=== PATIENT | female | born 1975 | race Caucasian/White ===

== ENCOUNTER → 2019-05-28 | Outpatient (CLI) | payer BC ==
[~2019-05-28] MED LIST: DOCU100 PO; IBUP800 PO; OXYACE5T PO; PROM25 PO; SIME80CH PO; THYR60 PO
[2019-05-28 12:18] LABS: Source, Urine Clean Catch
[2019-05-28 13:22] LABS: Bilirubin, Urine Neg (Neg); Blood, Urine Neg (Neg); Glucose Qualitative, Urine Neg (Neg); Ketones, Urine Neg (Neg); Leukocyte Esterase, Urine 2+ (Neg); Nitrite, Urine Neg (Neg); Protein, Urine Neg (Neg); Urobilinogen, Urine NORM (Normal); pH, Urine 6.5 (5.0-8.0)
[2019-05-28 14:12] LABS: Appearance, Urine Clear (Clear); Color, Urine Pale Yellow (P-Yellow)
[2019-05-28 14:34] LABS: Bacteria Not Seen /hpf; Red Blood Cells, Urine 0-2 /hpf (0-2); Squamous Epithelial Cells Not Seen /hpf (Few)
== END | disposition home or self-care (01) ==
LOC: LAB SHORT 12:17 → LAB SRC 12:17
PROVIDERS: Nurse Practitioner Women's Health
DX: R30.0 Dysuria (principal); R35.0 Frequency of micturition
CPT/HCPCS: 81001; 87077; 87086; 87186

== ENCOUNTER 2025-08-06 21:09 | Emergency (ER) | payer OTHER, BC ==
[~2025-08-06] VITALS: Ht 167.6 cm; Wt 77.1 kg
[2025-08-06 21:29] VITALS: BP 158/98
[2025-08-06] MEDS ORDERED: Ketorolac Tromethamine 15mg Vial IM ONE (21:55)
[2025-08-06] MEDS ORDERED: Robaxin750 MG PO (22:00)
== END 2025-08-06 22:18 | disposition home or self-care (01) ==
LOC: ER 21:09
DX: M54.2 Cervicalgia (principal); M54.6 Pain in thoracic spine; V49.50XA Passenger injured in collision with unspecified motor vehicles in traffic accident, initial encounter; E03.9 Hypothyroidism, unspecified; Z79.899 Other long term (current) drug therapy; Z59.6 Low income; Z59.89 Other problems related to housing and economic circumstances
CPT/HCPCS: 96372; 99283-25; A9270; J1885